=== PATIENT | female | born 1950 | race Caucasian/White ===

== ENCOUNTER 2019-01-12 13:08 | Outpatient (CLI) | payer MEDICARE | END 2019-01-12 23:59 | disposition home or self-care (01) | LOC: STAR 13:08 | PROVIDERS: ATTEND Obstetrics & Gynecology Female Pelvic Medicine and Reconstructive Surgery | DX: Z01.818 Encounter for other preprocedural examination (principal); N81.10 Cystocele, unspecified; N81.6 Rectocele; K46.9 Unspecified abdominal hernia without obstruction or gangrene; I45.10 Unspecified right bundle-branch block | CPT/HCPCS: 93005 ==